=== PATIENT | female | born 1945 | race Caucasian/White ===

== ENCOUNTER 2016-08-30 01:22 | Inpatient (IN) | payer MEDICARE ==
--- NOTE | ~2016-08-30 | EKG ---
PATIENT: NIKKY NIELSON UNIT #: [id number] Ventricular Rate: 88 BPM Atrial Rate: 88 BPM P-R Interval: 150 ms QRS Duration: 76 ms Q-T Interval: 396 ms QTC Calculation(Bezet): 479 ms P [place]: 68 degrees Calculated R [place]: 79 degrees Calculated T [place]: 53 degrees Diagnosis Line: Normal sinus rhythm Diagnosis Line: Normal ECG Diagnosis Line: When compared with ECG of 14-FEB-2016 16:54, Diagnosis Line: No significant change was found Diagnosis Line: Confirmed by REBECCA ABEL MD ([id number]) on Diagnosis Line: 08/30/2016 10:50:47 PM INTERPRETING : MAYO
--- NOTE | ~2016-08-30 | CT71 ---
[facility] A Service of [facility] RADIOLOGY TEXT RESULTS PATIENT: NIKKY NIELSON LOCATION: [place] [address] : [birth year] UNIT #: [id number] AGE: [address]: Bubba Ybarra MD SEX: F ORDER DR: [id number] [facility] [address] [place], [place] [address] [id number] MR#: [id number] #: [id number] NAME: NIKKY NIELSON. : 1945 SEX: F STUDY DATE/TIME: 08/30/2016 03:26 UNIT: CEDOF ROOM: 65923 STUDY DESCRIPTION: CT Head Wo Contrast Attending Physician: Bubba Ybrara Ordering Physician: Gilbert Kaur D.O. Primary Care Physician: Primary Care Physician No MEDICAL IMAGING REPORT This report is preliminary unless electronic signature is present EXAM Head CT with 08/30 0326 hours INDICATIONS Headache for the last [address] exam was performed with one or more of the following radiation dose reduction techniques: automatic exposure control, adjustment of mA and/or kV according to patient size, and iterative reconstruction. FINDINGS Axial images were obtained from the base to the vertex without contrast. Comparison made with 10/29/2015. Ventricular size and configuration remain normal. No acute infarct or hemorrhage is seen. There are no masses. There are no skull fractures. Visualized paranasal sinuses and mastoid air cells are clear. IMPRESSION Negative head CT. Dictated by... Marques Godinez Jr., M.D. THIS IS AN ELECTRONICALLY VERIFIED REPORT Marques Godinez Jr., M.D. at 08/30/2016 9:58 PM GALINDO/ifeanyi TD: 08/30/2016 06:30 JOB #: [id number] MEDICAL IMAGING REPORT COPY
--- NOTE | ~2016-08-30 | DS ---
Unit #: [id number] #: [id number] Patient: NIKKY NIELSON [id number] [address] [place], [place] [address] [id number] I MR#: [id number] NAME: NIKKY NIELSON ROOM: 218 Age: 71 Sex: F Admission Date: 08/30/2016 : 1945 Discharge Date: 09/04/2016 Attending Physician: William Ybarra M.D. Primary Care Physician: No Primary Care Physician DISCHARGE SUMMARY FINAL DIAGNOSES 1. Acute exacerbation of chronic obstructive pulmonary disease. 2. Acute on chronic hypoxemic respiratory failure. 3. Anxiety syndrome. 4. Acute bronchitis. PROCEDURE CT head. BRIEF HISTORY AND HOSPITAL COURSE Ms. Nielson is a 71-year-old female with history of COPD who presented to the ER with increasing shortness of air. She had chest x-ray suggestive of emphysema but no infiltrate. She was thought to have exacerbation of COPD and acute bronchitis. She was started on Rocephin and IV steroids. She normally uses two liters of nasal cannula and saturations were 94%. She improved over a few days and is ready for discharge. She had her steroids tapered and then she was changed to prednisone 40 mg p.o. b.i.d. starting today. However, I will change that rather quickly. As of 09/04/2016, she is definitely breathing better. She does have anxiety issues and Dr. Ybarra, my partner, has asked Dr. Hammond to see her but I do not know if he will make it by before she leaves. She has been on Xanax at home in the past. She did have a CT brain and this revealed no acute infarct or hemorrhage and no masses. Sinuses were fairly clear. She will be discharged today and will be on the following medicines: 1. DuoNeb q.i.d. 2. Prednisone 40 mg a day, although she will get 20 mg this evening one time only. Then, she will decreased by 10 mg every three days until she gets to 10 mg a day and then she will stay at 10 mg a day. 3. Zoloft 100 mg p.o. daily. 4. Trazodone 100 mg p.o. at bedtime. 5. Xanax 0.25 mg at bedtime and then 0.25 mg b.i.d. 6. Cefdinir 300 mg p.o. b.i.d. for four more days. 7. Lipitor 20 mg p.o. daily. 8. Ranitidine 150 mg daily. 9. Meloxicam 15 mg daily. 10. [place] 7.5/325 mg q.6 p.r.n. 11. Omeprazole 40 mg p.o. b.i.d. 12. Synthroid 0.05 mg daily. O2 should be two liters nasal cannula. She should follow up with her primary doctor. I think she said that it is Dr. Marques Oden. She should follow up with us in about four weeks. My partner has already written out a prescription for Xanax to cover her until she can see . Unit #: [id number] #: [id number] Patient: NIKKY NIELSON but we will not writing it after this one time. She should probably discontinue her two liters nasal cannula at home. [place] is fair. We discussed the need for her to completely quit smoking. Dictated by... Gennaro Gavin/sinan TD: 09/05/2016 19:20 JOB #: [id number] DISCHARGE SUMMARY X Ray Miller MD X DISCHARGE SUMMARY
--- NOTE | ~2016-08-30 | CR72 ---
[facility] A Service of [facility] & [facility] RADIOLOGY TEXT RESULTS PATIENT: NIKKY NIELSON LOCATION: [facility] : [birth year] UNIT #: [id number] AGE: [address]: Bubba Ybarra MD SEX: F ORDER DR: [id number] [facility] [address] [place], [place] [address] [id number] MR#: [id number] #: [id number] NAME: NIKKY NIELSON : 1945 SEX: F STUDY DATE/TIME: 08/30/2016 01:06 UNIT: [facility] ROOM: STUDY DESCRIPTION: CR Chest Single View Portable Attending Physician: Gilbert Kaur D.O. Ordering Physician: Gilbert Kaur D.O. Primary Care Physician: Primary Care Physician No MEDICAL IMAGING REPORT This report is preliminary unless electronic signature is present EXAM Portable chest, 08/30/2016 at 0106 hours. INDICATION Shortness of air and cough for 2 weeks, worse tonight. History of COPD. FINDINGS AP portable chest is compared with 02/14/2016. Cardiac and mediastinal contours are normal. There is emphysema. Lungs are clear. No pneumothorax is seen. IMPRESSION Emphysema. No active disease. Dictated by... Marques Godinez Jr., M.D. THIS IS AN ELECTRONICALLY VERIFIED REPORT Marques Godinez Jr., M.D. at 08/30/2016 6:07 AM GALINDO/erick TD: 08/30/2016 03:55 JOB #: [id number] MEDICAL IMAGING REPORT COPY
--- NOTE | ~2016-08-30 | HP ---
Unit #: [id number] #: [id number] Patient: NIKKY NIELSON [id number] [address] [place], [place] [address] [id number] I MR#: [id number] NAME: NIKKY NIELSON. ROOM: 218 Age: 71 Sex: F Admission Date: 08/30/2016 : 1945 Attending Physician: William Ybarra M.D. Primary Care Physician: No Primary Care Physician HISTORY AND PHYSICAL HISTORY Ms. Nielson is a pleasant lady with a history of pretty significant COPD. She has a history of being in the hospital approximately one and a half years ago for COPD exacerbation. The patient quit smoking approximately 5 years ago. She is feeling great. She has no need to go see the doctor. The patient has had a history of a CVA, hypothyroidism, anxiety. The patient states that, like previous admissions, she had sudden onset worsening shortness of breath. She had a cough. She had chest tightness, tingling in her arms and legs. She was feeling very diaphoretic. She has had 3 courses of antibiotics over the past 3 months with Z-Paks with no significant improvement in her shortness of air. The patient is having worsening of her PFT at her primary care doctor's office. The patient is still intermittently smoking. Now she presents with worsening shortness of breath and no improvement with her home regimen or with outpatient medications. The patient is on steroids chronically. REVIEW OF SYSTEMS A 9-point review of systems is negative except as for the history of present illness. PAST MEDICAL HISTORY Significant for chronic obstructive pulmonary disease, oxygen at 2.5 liters a minute, obstructive sleep apnea, chronic pain syndrome, history of previous stroke, gastroesophageal reflux disease, hypothyroidism, history of colon polyps, history of anxiety, history of a stress test multiple years ago, history of nicotine abuse. PAST SURGICAL HISTORY Significant for total hysterectomy, cholecystectomy, appendectomy, hemorrhoidectomy, tonsillectomy. HOME MEDICATIONS 1. Levothyroxine 50 mcg daily. 2. Meloxicam 15 mg daily. 3. Atorvastatin 40 mg daily. 4. Omeprazole 40 mg daily. 5. Ranitidine 150 mg b.i.d. 6. Vitamin D b.i.d. 7. Trazodone 150 mg at bedtime. 8. Prednisone 10 mg daily. 9. Hydrocodone 7.5/325 mg 1 tablet q.6 hours p.r.n. pain. 10. Sertraline 100 mg a day. ALLERGIES Unit #: [id number] #: [id number] Patient: NIKKY NIELSON Levaquin, latex, Ambien, fentanyl, Demerol, quinolones, penicillin. SOCIAL HISTORY The patient lives in her own apartment in [place] [facility]. She had quit smoking 5 years ago and now is taking them intermittently. History of ETOH; none currently. No history of polysubstance abuse. "No history of coronary artery disease. History of cancer." PHYSICAL EXAMINATION VITAL SIGNS: T current 98, pulse 87, respiratory rate 22, blood pressure 132/90, satting 96% on 2 liters nasal cannula. HEENT: Extraocular movements are intact. Pupils are equal, round and reactive to light. NECK: Neck is about 18 inches in circumference. There is no JVD. There is no accessory muscle use. CHEST: Decreased breath sounds bilaterally. CARDIOVASCULAR: Regular rate. There is no gallop. ABDOMEN: The abdomen is soft, nontender, nondistended. There is a spot, which may be a basal cell, on the anterior abdominal wall. EXTREMITIES: Extremities show maybe trace edema. DIAGNOSTIC STUDIES LABORATORY DATA: Flu screen negative. Lactic acid 0.9. BNP 22. Cardiac enzymes negative. IMAGING: CAT scan of the head without contrast negative. Chest x-ray - Emphysema on chest x-ray. ASSESSMENT AND PLAN 1. Acute on chronic respiratory failure. 2. COPD exacerbation. Continue steroids. Continue neb. Will put a bedside albuterol to be present. No dropping of steroids just yet. Failure of outpatient treatment. We are going to try to get sputum cultures. In the meantime, the patient is on doxy and Rocephin. Scheduled neb. Hopefully, will be able to get improvement in her breathing. We are going to encourage her to use her oxygen more or less continuously. I wonder if she may not benefit from some pulmonary rehab. Will need to write a letter to [employer] to get her into a 2-bedroom apartment. Dictated by Gennaro Anand TD: 08/30/2016 15:14 JOB #: [id number] Unit #: [id number] #: [id number] Patient: NIKKY NIELSON HISTORY AND PHYSICAL X Bubba Ybarra MD X HISTORY AND PHYSICAL
[2016-08-30 01:16] LABS: BASOPHIL# 0.1 X10e3 (0-0.3); BASOPHIL% 0.9 % (0-2.5); EOSINOPHIL# 0.3 X10e3 (0-0.7); HEMATOCRIT 39.6 % (35.0-45.0); HEMOGLOBIN 13.4 gm/dL (12.0-16.0); LYMPHOCYTE# 2.1 X10e3 (1.0-3.5); LYMPHOCYTE% 27.9 % (17.0-45.0); MEAN CELL VOLUME 86.2 FL (83-96); MEAN CORPUSCULAR HEMOGLOBIN 29.1 PG (28-34); MEAN CORPUSCULAR HGB CONC 33.8 g/dL (30-36); MEAN PLATELET VOLUME 8.1 FL (6.5-11.5); MONOCYTE# 0.7 X10e3 (0-1.0); MONOCYTE% 9.1 % (3.0-12.0); NEUTROPHIL# 4.3 X10e3 (1.5-7.1); NEUTROPHIL% 58.1 % (40-75); PLATELET COUNT 166 X10e3 (140-420); RED BLOOD COUNT 4.59 X10e (3.90-5.30); RED CELL DISTRIBUTION WIDTH 14.5 % (11.0-15.5); WHITE BLOOD COUNT 7.4 X10e3 (4.0-10.5)
[2016-08-30 01:17] LABS: DIFF IND NO
[~2016-08-30 01:22] MED LIST: ACETAMINOPHEN PO; ADVAIR 250-501 EAC1 IH; ADVAIR 2501 DISK W/D PO; ALB/IPRATROPIUM/1 E1 INH; ALBUTEROL INH; ALBUTEROL MININEB NEB; ALBUTEROL0.83 MG/ML NEB; ALBUTEROL17 GM INH; AMITRYPTYLINE; ANEXSIA 7.5/3251 TA1 PO; BENADRYL PO; BENADRYL25 MG PO; BUPROPION XL150 MG PO; CEFTIN PO; CEFTIN250 MG/5 M PO; CELEXA PO; CHANTIX PO; COMBIVENT INH14.7 GM INH; DESYREL50 MG PO; DIAZEPAM PO; DIAZEPAM10 MG PO; DOXYCYCLINE PO; DUONEB 2.5-0.5 M3 ML; FLEXERIL; FLEXERIL PO; FLEXERIL10 MG PO; FLONASE16 GM; HUMIBID L.1 TAB.SR . PO; HYDRALAZINE HCL25 MG PO; HYDROCODON-ACE1 EAC1 PO; LASIX; LASIX PO; LEVAQUIN; LODINE; LORTAB 7.5-5001 TAB PO; MEDROL; MEDROL PO; MEDROL4 MG/DOSE- PO; MILK OF MAGNESIA PO; MOBIC PO; OXYGEN; PATIENT'S PHARMACY; PAXIL; PAXIL PO; PHENERGAN PO; PHENERGAN W/CO120 ML; PHENERGAN W/CO120 ML PO; PHENERGAN25 MG PO; PHENOLATE PO; PREDNISONE PO; PREDNISONE10 MG; PREDNISONE10 MG PO; PREVACID; PROZAC PO; SPIRIVA18 MCG INH; SYMBICORT INH; TUSSIONEX PENN473 ML PO; Valium PO; WELLBUTRIN PO; Z-PACK; ZANTAC PO; ZANTAC150 M1 PO; ZITHROMAX; ZITHROMAX PO; ZITHROMAX1 G/PKT PO; ZITHROMAX500 MG PO; ZOLOFT PO
[2016-08-30 01:31] LABS: PARTIAL THROMBOPLASTIN TIME 23.6 SECONDS (23.5-31.3); PROTHROMBIN TIME (PATIENT) 10.6 SECONDS (9.6-11.5)
[2016-08-30 01:32] LABS: POC - CKMB <1.0 ng/mL (0.0-7.9); POC - TROPONIN <0.05 ng/mL (<=0.05)
[2016-08-30 01:40] LABS: ALBUMIN SERUM 4.2 g/dL (3.5-5.0); BILIRUBIN, DIRECT 0.2 mg/dL (0.0-0.2); BILIRUBIN,INDIRECT 0.7 mg/dL (0.0-0.9); BILIRUBIN,TOTAL 0.9 mg/dL (0.2-2.0); CALCIUM SERUM 8.8 mg/dL (8.4-10.2); GLOM FILT RATE Estimated 57.8 mL/min (>60); POTASSIUM 3.9 mmol/L (3.5-5.1); PROTEIN TOTAL SERUM 6.6 g/dL (6.0-8.3)
[2016-08-30 03:41] LABS: POC - CKMB 1.1 ng/mL (0.0-7.9); POC - TROPONIN <0.05 ng/mL (<=0.05)
[2016-08-30] MEDS ORDERED: MELOXICAM15 MG PO (05:34)
[2016-08-30] MEDS ORDERED: SYNTHROID0.05 MG PO (05:34)
[2016-08-30] MEDS ORDERED: LIPITOR20 MG PO (05:35)
[2016-08-30] MEDS ORDERED: OMEPRAZOLE40 M1 PO (05:35)
[2016-08-30] MEDS ORDERED: RANITIDINE HCL150 M1 PO (05:36)
[2016-08-30] MEDS ORDERED: TRAZODONE HCL150 MG PO (05:37)
[2016-08-30] MEDS ORDERED: PREDNISONE10 MG PO (05:38)
[2016-08-30] MEDS ORDERED: NORCO 7.5-3251 EACH PO (05:58)
[2016-08-30] MEDS ORDERED: SERTRALINE HCL100 M1 PO (05:59)
[2016-08-30 07:17] LABS: INFLUENZA A NEG (NEG); INFLUENZA B NEG (NEG)
[2016-08-31 06:12] LABS: HEMATOCRIT 34.2 % (35.0-45.0); HEMOGLOBIN 11.5 gm/dL (12.0-16.0); MEAN CELL VOLUME 86.1 FL (83-96); MEAN CORPUSCULAR HEMOGLOBIN 28.9 PG (28-34); MEAN CORPUSCULAR HGB CONC 33.5 g/dL (30-36); MEAN PLATELET VOLUME 8.9 FL (6.5-11.5); RED BLOOD COUNT 3.97 X10e (3.90-5.30); RED CELL DISTRIBUTION WIDTH 14.3 % (11.0-15.5)
[2016-08-31 06:38] LABS: WHITE BLOOD COUNT 11.6 X10e3 (4.0-10.5)
[2016-08-31 11:16] LABS: ALBUMIN SERUM 3.7 g/dL (3.5-5.0); BILIRUBIN,TOTAL 0.3 mg/dL (0.2-2.0); GLOM FILT RATE Estimated 57.8 mL/min (>60); POTASSIUM 4.2 mmol/L (3.5-5.1); PROTEIN TOTAL SERUM 5.8 g/dL (6.0-8.3)
[2016-09-01 07:35] LABS: BASOPHIL% 0.1 % (0-2.5); HEMATOCRIT 35.5 % (35.0-45.0); HEMOGLOBIN 11.8 gm/dL (12.0-16.0); LYMPHOCYTE# 0.8 X10e3 (1.0-3.5); LYMPHOCYTE% 6.3 % (17.0-45.0); MEAN CELL VOLUME 86.8 FL (83-96); MEAN CORPUSCULAR HEMOGLOBIN 28.8 PG (28-34); MEAN CORPUSCULAR HGB CONC 33.2 g/dL (30-36); MEAN PLATELET VOLUME 8.3 FL (6.5-11.5); MONOCYTE# 0.5 X10e3 (0-1.0); MONOCYTE% 4.1 % (3.0-12.0); NEUTROPHIL# 10.8 X10e3 (1.5-7.1); NEUTROPHIL% 89.5 % (40-75); PLATELET COUNT 176 X10e3 (140-420); RED BLOOD COUNT 4.08 X10e (3.90-5.30); RED CELL DISTRIBUTION WIDTH 14.5 % (11.0-15.5); WHITE BLOOD COUNT 12.1 X10e3 (4.0-10.5)
[2016-09-01 07:36] LABS: DIFF IND NO
[2016-09-02 07:43] LABS: ALBUMIN SERUM 3.4 g/dL (3.5-5.0); ALKALINE PHOSPHATASE 48 U/L (32-92); ALT (SGPT) 27 U/L (10-40); AST (SGOT) 25 U/L (10-42); BILIRUBIN,TOTAL 0.4 mg/dL (0.2-2.0); BLOOD UREA NITROGEN 24 mg/dL (9-23); BUN/CREATININE RATIO 26.66; CALCIUM SERUM 8.7 mg/dL (8.4-10.2); CARBON DIOXIDE 28 mmol/L (22-31); CHLORIDE 107 mmol/L (100-111); CREATININE SERUM 0.9 mg/dL (0.6-1.4); GLOM FILT RATE Estimated ABOVE60 mL/min (>60); GLUCOSE FASTING 117 mg/dL (70-110); POTASSIUM 4.3 mmol/L (3.5-5.1); PROTEIN TOTAL SERUM 5.5 g/dL (6.0-8.3); SODIUM 143 mmol/L (135-145)
[2016-09-03 07:05] LABS: HEMATOCRIT 35.2 % (35.0-45.0); HEMOGLOBIN 11.6 gm/dL (12.0-16.0); LYMPHOCYTE% 12.2 % (17.0-45.0); MEAN CORPUSCULAR HEMOGLOBIN 28.8 PG (28-34); MEAN CORPUSCULAR HGB CONC 33.1 g/dL (30-36); MONOCYTE% 11.5 % (3.0-12.0); NEUTROPHIL# 6.6 X10e3 (1.5-7.1); NEUTROPHIL% 76.3 % (40-75); PLATELET COUNT 150 X10e3 (140-420); RED BLOOD COUNT 4.04 X10e (3.90-5.30); RED CELL DISTRIBUTION WIDTH 14.2 % (11.0-15.5); WHITE BLOOD COUNT 8.6 X10e3 (4.0-10.5)
[2016-09-03 07:08] LABS: DIFF IND NO
[2016-09-04 05:33] LABS: HEMATOCRIT 36.1 % (35.0-45.0); HEMOGLOBIN 11.9 gm/dL (12.0-16.0); LYMPHOCYTE# 0.7 X10e3 (1.0-3.5); LYMPHOCYTE% 9.2 % (17.0-45.0); MEAN CELL VOLUME 86.4 FL (83-96); MEAN CORPUSCULAR HEMOGLOBIN 28.4 PG (28-34); MEAN CORPUSCULAR HGB CONC 32.9 g/dL (30-36); MONOCYTE# 0.6 X10e3 (0-1.0); MONOCYTE% 7.8 % (3.0-12.0); NEUTROPHIL# 6.2 X10e3 (1.5-7.1); PLATELET COUNT 155 X10e3 (140-420); RED BLOOD COUNT 4.18 X10e (3.90-5.30); RED CELL DISTRIBUTION WIDTH 14.3 % (11.0-15.5); WHITE BLOOD COUNT 7.4 X10e3 (4.0-10.5)
[2016-09-04 05:37] LABS: DIFF IND NO
[2016-09-04 06:07] LABS: BLOOD UREA NITROGEN 20 mg/dL (9-23); BUN/CREATININE RATIO 22.22; CALCIUM SERUM 8.8 mg/dL (8.4-10.2); CARBON DIOXIDE 31 mmol/L (22-31); CHLORIDE 103 mmol/L (100-111); CREATININE SERUM 0.9 mg/dL (0.6-1.4); GLOM FILT RATE Estimated ABOVE60 mL/min (>60); GLUCOSE FASTING 168 mg/dL (70-110); POTASSIUM 4.2 mmol/L (3.5-5.1); SODIUM 140 mmol/L (135-145)
[2016-09-04] MEDS ORDERED: COMBIVENT U/D3 M1 INH (11:28)
[2016-09-04] MEDS ORDERED: ALPRAZOLAM PO (11:34)
[2016-09-04] MEDS ORDERED: CEFDINIR300 M1 PO (11:34)
== END 2016-09-04 17:24 | disposition home or self-care (01) | DRG 189 ==
LOC: CED 01:22 → CEDOF 05:00 → C2A 09:21
PROVIDERS: Emergency Medicine; Internal Medicine Pulmonary Disease
PROC: 05H533Z Insertion of Infusion Device into Right Subclavian Vein, Percutaneous Approach (ICD-10-PCS; principal; 2016-08-30)
PROC: B546ZZA Ultrasonography of Right Subclavian Vein, Guidance (ICD-10-PCS; 2016-08-30)
DX: J96.21 Acute and chronic respiratory failure with hypoxia (principal); J44.0 Chronic obstructive pulmonary disease with (acute) lower respiratory infection; J44.1 Chronic obstructive pulmonary disease with (acute) exacerbation; Z88.0 Allergy status to penicillin; Z91.040 Latex allergy status; F41.9 Anxiety disorder, unspecified; F32.9 Major depressive disorder, single episode, unspecified; J20.9 Acute bronchitis, unspecified
CPT/HCPCS: 36415; 70450; 71010; 80048; 80053; 80076; 82308; 82553; 83605; 83880; 84484; 85025; 85027; 85610; 85730; 87070; 87205; 87633; 87804; 93005; 94640; 94760; 97162; 99285; G8978-GP; G8979-GP; G8980-GP; J0696; J1650; J1885; J2920; J2930